=== PATIENT | female | born 1975 | race Caucasian/White ===

== ENCOUNTER 2016-10-04 09:22 | Emergency (ER) | payer OTHER ==
[2016-10-04 09:30] VITALS: TEMP 98.4; BMI 43.2
--- NOTE | 2016-10-04 09:47 | PDOC ---
History of Present Illness - General Chief Complaint: Palpitations Stated Complaint: CHEST PAIN, IRREGULAR HEARTBEAT Time Seen by Provider: 10/04/16 09:36 History Source: Patient Exam Limitations: No Limitations - History of Present Illness Initial Comments: 10/04/16 09:47 CHIEF COMPLAINT: Chest pain HISTORY OF PRESENT ILLNESS: This is a 41 year old female with a history of asthma (no hospitalizations), HLD, and gallstone pancreatitis s/p cholecystectomy who presents complaining of palpitations and chest pressure. She reports she has been having cold symptoms (fever up to 101, cough productive of yellow sputum, and bodyaches) for the past week, but just developed episodes of intermittent palpitations and chest pressure ("like someone sitting on my chest") starting on Tuesday. Vital signs on arrival are notable for BP 154/54. PCP is Dr. Josefa Rothman REVIEW OF SYSTEMS: GENERAL/CONSTITUTIONAL: Fevers/chills, malaise. No weakness. No weight change. HEAD, EYES, EARS, NOSE AND THROAT: No change in vision. No ear pain or discharge. No sore throat. CARDIOVASCULAR: Chest pressure, palpitations. RESPIRATORY: Cough productive of yellow sputum, shortness of breath. GASTROINTESTINAL: No nausea, vomiting, diarrhea or constipation. GENITOURINARY: No dysuria, frequency, or change in urination. MUSCULOSKELETAL: No joint or muscle swelling or pain. No neck or back pain. SKIN: No rash or easy bruising. NEUROLOGIC: Frontal headache. No vertigo, loss of consciousness, or loss of sensation. PSYCHIATRIC: No depression or anxiety. ENDOCRINE: No increased thirst. No abnormal weight change. HEMATOLOGIC/LYMPHATIC: No anemia, easy bleeding, or history of blood clots. ALLERGIC/IMMUNOLOGIC: No hives or skin allergy. No latex allergy. PHYSICAL EXAM: GENERAL: The patient is awake, alert, and fully oriented, in no acute distress. HEAD: Normal with no signs of trauma. ENT: Pupils equal, round and reactive to light, extraocular movements intact, sclera anicteric, conjunctiva clear. Neck supple. LUNGS: Clear to auscultation bilaterally. Normal excursion. No respiratory distress or use of accessory muscles. CV: RRR, S1/S2, no MRG. Cap refill < 2 sec. ABDOMEN: Soft, non-distended, non-tender. EXTREMITIES: Normal range of motion, no edema. NEUROLOGICAL: Normal speech, normal gait. CN II-XII grossly intact. PSYCH: Normal mood, normal affect. SKIN: Warm, dry, normal turgor, no rashes or lesions noted. Past History - Past Medical History Allergies/Adverse Reactions: Allergies Allergy/AdvReac Type Severity Reaction Status Date / Time No Known Allergies Allergy Verified 10/04/16 09:26 Home Medications: Ambulatory Orders Albuterol Sulfate Inhaler - [Ventolin HFA Inhaler -] 1 - 2 inh PO QID #1 inhaler 10/04/16 Azithromycin [Zithromax 250mg Tablets -] 250 mg PO UTDICT #6 tab 10/04/16 Promethazine/Phenyleph/Codeine [Phenergan VC+Codeine Syrup] 5 ml PO QID PRN # 118 ml MDD 20 mls 10/04/16 Asthma: Yes Cancer: No Cardiac Disorders: No Diabetes: No HTN: No Hypercholesterolemia: Yes (NOT ON MEDS) Seizures: No Thyroid Disease: No - Surgical History Abdominal Surgery: Yes (TUBAL LIGATION) Cholecystectomy: Yes - Reproductive History (#): 4 Para: 3 Therapeutic (s) & number: No Spontaneous : 0 - Psycho/Social/Smoking Cessation Hx Anxiety: No Suicidal Ideation: No Smoking History: Never smoked Have you smoked in the past 12 months: No Number of Cigarettes Smoked Daily: 0 Information on smoking cessation initiated: No Hx Alcohol Use: No Drug/Substance Use Hx: No Substance Use Type: None Hx Substance Use Treatment: No *Physical Exam - Vital Signs Last Vital Signs Temp Pulse Resp BP Pulse Ox 98.4 F 74 18 154/54 100 10/04/16 09:26 10/04/16 09:26 10/04/16 09:26 10/04/16 09:26 10/04/16 09:26 Heart Score/ECG Review - ECG Intrepretation Comment:: 10/04/16 09:56 NSR at 84bpm, no ST or T wave changes ED Treatment Course - LABORATORY CBC & Chemistry Diagram: 10/04/16 10:09 10/04/16 10:09 - RADIOLOGY Radiology Studies Ordered: Category Date Time Status CHEST PA & LAT [RAD] Stat Radiology 10/04/16 09:46 Ordered Medical Decision Making - Medical Decision Making 10/04/16 10:46 A/P: 41 year old female with chest pressure/palpitations in the context of cold/ flu-like symptoms. 1. EKG 2. CXR 3. Influenza swab 4. Cardiac labs + d-dimer 5. Re-assess 10/04/16 10:48 Flu neg. WBC within normal limits at 9.4. 10/04/16 11:41 Labs including cardiac profile and d-dimer unremarkable. CXR shows no active disease. 10/04/16 15:56 Repeat troponin <0.02. Will dc with PCP followup and return precautions. *DC/Admit/Observation/Transfer Diagnosis at time of Disposition: Atypical chest pain, Palpitations - Discharge Dispostion Disposition: HOME Condition at time of disposition: Stable Admit: No - Prescriptions Prescriptions: Promethazine/Phenyleph/Codeine [Phenergan VC+Codeine Syrup] 5 ml PO QID PRN # 118 ml MDD 20 mls PRN Reason: Cough Albuterol Sulfate Inhaler - [Ventolin HFA Inhaler -] 1 - 2 inh PO QID #1 inhaler Azithromycin [Zithromax 250mg Tablets -] 250 mg PO UTDICT #6 tab - Referrals Referrals: Josefa Rothman [Primary Care Provider] - 3 days - Patient Instructions Printed Discharge Instructions: DI for Atypical Chest Pain, DI for Acute Bronchitis Additional Instructions: You were seen today for chest pain, cough, palpitations, headache, and body pain. Your chest xray is normal and does not show any sign of pneumonia. Your EKG is normal. Your blood work including a test to screen for blood clots in the legs or lungs and two sets of tests for the heart is all normal. Your flu test is negative. Take azithromycin as prescribed for bronchitis. Use an albuterol inhaler and take cough syrup with codeine as prescribed when you are not driving or working. Follow up with your primary care doctor tomorrow and return here for difficulty breathing, worsening chest pain, or any other concerning symptoms. - Post Discharge Activity Work/School Note: Back to Work
[2016-10-04 10:32] LABS: BASOPHIL 0.5 % (0-2.0); EOSINOPHIL 3.8 % (0-4.5); MCH 28.7 pg (25.7-33.7); MCHC 34.5 g/dl (32.0-36.0); MEAN CELL VOLUME 83.2 fl (80-96); MEAN PLT VOLUME 8.5 fl (7.5-11.1); NEUTROPHILS 65.8 % (42.8-82.8); PLATELET COUNT 230 K/MM3 (134-434); RDW 13.5 % (11.6-15.6); WHITE BLOOD COUNT 9.4 K/mm3 (4.0-10.0)
[2016-10-04 10:44] LABS: INR 1.08 (0.82-1.09); PROTHROMBIN TIME (PATIENT) 11.9 SEC (9.98-11.88)
[2016-10-04 10:51] LABS: ALBUMIN 3.8 g/dl (3.4-5.0); ALK PHOS 60 U/L (45-117); ANION GAP 8 (8-16); BILIRUBIN,TOTAL 0.4 mg/dL (0.2-1.0); CALCIUM 8.5 mg/dL (8.5-10.1); CO2 22 mmol/L (21-32); CREATININE 0.9 mg/dL (0.55-1.02); GLUCOSE,RANDOM 94 mg/dL (74-106); SGOT/AST 11 U/L (15-37); SGPT/ALT 23 U/L (12-78); TOT PROT 7.3 g/dl (6.4-8.2); TROPONIN I < 0.02 ng/ml (0.00-0.05)
[2016-10-04] MEDS ORDERED: KETOROLAC TROMETHAMINE 30 MG/1 ML VIAL IVPUSH ONE (11:00)
[2016-10-04] MEDS ORDERED: KETOROLAC TROMETHAMINE 30 MG/1 ML VIAL ONE (11:11)
[2016-10-04] MEDS ORDERED: SODIUM CHLORIDE 1,000 ML IV STA (12:31)
[2016-10-04] MEDS ORDERED: ACETAMINOPHEN 500 MG TABLET (FP) PO ONE (12:32)
[2016-10-04] MEDS ORDERED: ACETAMINOPHEN 325 MG TABLET (FP) ONE (12:40)
[2016-10-04 15:12] LABS: TROPONIN I < 0.02 ng/ml (0.00-0.05)
[2016-10-04] MEDS ORDERED: OXYCODONE/APAP 5/325MG COMBO TABLET PO ONE (15:53)
[2016-10-04] MEDS ORDERED: ALBUTEROL SO4 2.5/IPRATROPIUM 0.5 INH SOL 3 ML VIAL.NEB. NEB ONE ×2 (15:54→16:10)
[2016-10-04] MEDS ORDERED: OXYCODONE/APAP 5/325MG COMBO TABLET ONE (16:10)
[2016-10-04 17:00] VITALS: BP 140/68; PULSE 75
--- NOTE | 2016-10-05 16:36 | EKG ---
Test Reason : Blood Pressure : / mmHG Vent. Rate : 084 BPM Atrial Rate : 084 BPM P-R Int : 156 ms QRS Dur : 084 ms QT Int : 358 ms P-R-T Axes : 027 008 013 degrees QTc Int : 423 ms NORMAL SINUS RHYTHM NORMAL ECG WHEN COMPARED WITH ECG OF 26-FEB-2015 17:01, T WAVE VARIATION Confirmed by FLOYD MOODY MD ([id number]) on 10/05/2016 4:35:51 PM Referred By: Confirmed By:FLOYD MOODY MD
== END 2016-10-04 17:02 | disposition home or self-care (01) ==
LOC: JER 09:22
PROC: 3E0F7GC Introduction of Other Therapeutic Substance into Respiratory Tract, Via Natural or Artificial Opening (ICD-10-PCS; principal; 2016-10-04)
PROC: 3E0337Z Introduction of Electrolytic and Water Balance Substance into Peripheral Vein, Percutaneous Approach (ICD-10-PCS; 2016-10-04)
PROC: 3E0333Z Introduction of Anti-inflammatory into Peripheral Vein, Percutaneous Approach (ICD-10-PCS; 2016-10-04)
DX: R07.89 Other chest pain (principal); R00.2 Palpitations; J20.9 Acute bronchitis, unspecified; R51 Headache
CPT/HCPCS: 36415; 71020-TC; 80053; 82550; 84484; 84703; 85025; 85379; 85610; 87804; 93005; 93010; 94640; 96361; 96374; 99285-25

== ENCOUNTER 2016-11-17 19:20 | Emergency (ER) | payer OTHER ==
[2016-11-17 19:35] VITALS: BP 136/76; PULSE 92; TEMP 103; BMI 38.0
--- NOTE | 2016-11-17 19:35 | PDOC ---
Rapid Medical Evaluation Chief Complaint: Lightheaded Time Seen by Provider: 11/17/16 19:29 Medical Evaluation: Allergies Allergy/AdvReac Type Severity Reaction Status Date / Time No Known Allergies Allergy Verified 11/17/16 19:31 11/17/16 19:34 41 yo F c/o rodriguez, sore throat, body ache, 102.5 tmax since yesterday. Pt took tylenol 1.5gm Influenza rapid ordered and sent
[2016-11-17] MEDS ORDERED: AMOX TR/POT CLAV 875MG/125MG TABLETS (FP) PO ONE (21:08)
[2016-11-17] MEDS ORDERED: IBUPROFEN 600 MG TABLET (FP) PO ONE ×2 (21:08→21:26)
--- NOTE | 2016-11-17 21:22 | PDOC ---
History of Present Illness - General Chief Complaint: Lightheaded Stated Complaint: LIGHTHEADED Time Seen by Provider: 11/17/16 19:29 History Source: Patient Exam Limitations: No Limitations - History of Present Illness Initial Comments: 11/17/16 21:20 Chief complaint: Throat pain Patient 41-year-old female with a history of asthma who states that she has a sore throat for 2 days, minimal cough, states that she has had body aches and lightheaded. Patient's fever was 103 in triage, had taken Tylenol about an hour before that. No nausea or vomiting. No headache. Patient does not appear toxic. GENERAL/CONSTITUTIONAL: +fever, weakness. dizziness HEAD, EYES, EARS, NOSE AND THROAT: No change in vision. No ear pain or discharge. +sore throat. CARDIOVASCULAR: No chest pain RESPIRATORY: No shortness of breath or cough GASTROINTESTINAL: No pain, nausea, vomiting, diarrhea or constipation GENITOURINARY: No dysuria MUSCULOSKELETAL: No neck or back pain SKIN: No rash NEUROLOGIC: No headache, vertigo, loss of consciousness, or loss of sensation. GENERAL: The patient is awake, alert, and fully oriented, in no acute distress. HEAD: Normal with no signs of trauma. EYES: Pupils equal, round and reactive to light, sclera anicteric, conjunctiva clear. ENT: pharynx: +erythema, + right sided exudate, uvula midline. No signs of a peritonsillar abscess, speech normal NECK: supple CHEST: clear, nontender, rr ABD: soft, nontender EXTREMITIES: Normal range of motion, no edema. NEUROLOGICAL: Normal speech, normal gait. SKIN: Warm, Dry Past History - Past Medical History Allergies/Adverse Reactions: Allergies Allergy/AdvReac Type Severity Reaction Status Date / Time No Known Allergies Allergy Verified 11/17/16 19:31 Home Medications: Ambulatory Orders Albuterol Sulfate Inhaler - [Ventolin Hfa Inhaler -] 1 - 2 inh PO QID 11/17/16 Amox-Tr/K Cl [Augmentin - 875Mg Tablet] 1 tab PO BID #20 tablet 11/17/16 Asthma: Yes Cancer: No Cardiac Disorders: No Diabetes: No HTN: No Hypercholesterolemia: Yes (NOT ON MEDS) Seizures: No Thyroid Disease: No - Surgical History Abdominal Surgery: Yes (TUBAL LIGATION) Cholecystectomy: Yes - Reproductive History (#): 4 Para: 3 Therapeutic (s) & number: No Spontaneous : 0 - Psycho/Social/Smoking Cessation Hx Anxiety: No Suicidal Ideation: No Smoking History: Never smoked Have you smoked in the past 12 months: No Number of Cigarettes Smoked Daily: 0 Hx Alcohol Use: No Drug/Substance Use Hx: No Substance Use Type: None Hx Substance Use Treatment: No *Physical Exam - Vital Signs Last Vital Signs Temp Pulse Resp BP Pulse Ox 103 F H 92 H 18 136/76 99 11/17/16 19:32 11/17/16 19:32 11/17/16 19:32 11/17/16 19:32 11/17/16 19:32 Medical Decision Making - Medical Decision Making 11/17/16 21:22 Patient with throat pain, swelling and exudate on the right side of the throat, uvula is midline, no signs of peritonsillar abscess, patient can speak easily although she feels body aches and throat pain. Influenza swab was sent from triage, we'll send throat culture, we'll treat with ibuprofen and Augmentin 11/17/16 23:08 Patient feels better, we'll discharge home on Augmentin 11/17/16 23:53 Discharge temperature was 98.1 *DC/Admit/Observation/Transfer Diagnosis at time of Disposition: Strep pharyngitis - Discharge Dispostion Admit: No - Prescriptions Prescriptions: Amox-Tr/K Cl [Augmentin - 875Mg Tablet] 1 tab PO BID #20 tablet - Referrals Referrals: Josefa Rothman [Primary Care Provider] - Eduardo Kamara MD [Staff Physician] - - Patient Instructions Printed Discharge Instructions: Strep Throat Additional Instructions: You should drink plenty of fluids, try to drink at least 2-3 L of fluid a day, he should not just drank water if you're not eating, you should drink Gatorade or something with some sugar and it. Return to the ER if difficulty breathing, drooling, unable to swallow or getting sicker Take the Augmentin one tablet every 12 hours for 10 days, take it for the whole 10 days even if he started feeling better which she should in the first day or 2 For pain take Tylenol 650 mg every 4 hours and Motrin 600 mg every 6 hours. If any other concerns, you can call the ENT and follow-up with them this week
[2016-11-17] MEDS ORDERED: AMOX TR/POT CLAV 875MG/125MG TABLETS (FP) ONE (21:25)
[2016-11-17] MEDS ORDERED: SODIUM CHLORIDE 1,000 ML IV STA (21:42)
== END 2016-11-17 23:36 | disposition home or self-care (01) ==
LOC: JER 19:20
PROC: 3E0337Z Introduction of Electrolytic and Water Balance Substance into Peripheral Vein, Percutaneous Approach (ICD-10-PCS; principal; 2016-11-17)
DX: J02.0 Streptococcal pharyngitis (principal); B95.0 Streptococcus, group A, as the cause of diseases classified elsewhere; J45.909 Unspecified asthma, uncomplicated
CPT/HCPCS: 87070; 87430; 99282-25

== ENCOUNTER 2016-12-04 16:28 | Emergency (ER) | payer OTHER ==
[2016-12-04 16:33] VITALS: BMI 44.9
--- NOTE | 2016-12-04 16:38 | PDOC ---
History of Present Illness - General History Source: Patient, Old Records Exam Limitations: No Limitations - History of Present Illness Initial Comments: 12/04/16 17:12 The patient is a 41 year old female, with a significant past medical history of asthma, hyperlipidemia and cholelithiasis/pancreatitis s/p cholecystectomy, who presents to the emergency department with constant nonradiating diffuse lower quadrant abdominal pain since earlier this morning. The patient rates her pain as a 10/10 in severity and reports that the pain is worse in the LLQ. The patient reports that she was most recently seen in this ED on 11/17/2016 with a sore throat, was diagnosed with strep pharyngitis and was discharged home on Augmentin. The patient reports that she completed the course of antibiotics but reports a persistent sore throat. The patient does report chills but denies fever or cough. The patient denies shortness of breath or chest pain. The patient denies nausea, vomiting, diarrhea, melena/bpr or any dysuria. LMP: 2016 (but patient reports irregular menses are normal for her). Allergies: None reported. Past Surgical History: x 4, Tubal Ligation, Cholecystectomy. Social History: Non smoker. Denies alcohol or drug use. PCP: Dr. Josefa Rothman <Madiha Alas - Last Filed: 12/04/16 18:25> <Kamaljit Perez - Last Filed: 12/04/16 19:00> - General Chief Complaint: Pain Stated Complaint: ABDOMINAL PAIN Time Seen by Provider: 12/04/16 16:37 Past History <Madiha Alas - Last Filed: 12/04/16 18:25> - Past Medical History Asthma: Yes Cancer: No Cardiac Disorders: No Diabetes: No HTN: No Hypercholesterolemia: Yes (NOT ON MEDS) Seizures: No Thyroid Disease: No - Surgical History Abdominal Surgery: Yes (TUBAL LIGATION) Cholecystectomy: Yes - Reproductive History (#): 4 Para: 3 Therapeutic (s) & number: No Spontaneous : 0 - Psycho/Social/Smoking Cessation Hx Anxiety: No Suicidal Ideation: No Smoking History: Never smoked Have you smoked in the past 12 months: No Number of Cigarettes Smoked Daily: 0 Information on smoking cessation initiated: No Hx Alcohol Use: No Drug/Substance Use Hx: No Substance Use Type: None Hx Substance Use Treatment: No <AnaKamaljit - Last Filed: 12/04/16 19:00> - Past Medical History Allergies/Adverse Reactions: Allergies Allergy/AdvReac Type Severity Reaction Status Date / Time No Known Allergies Allergy Verified 12/04/16 16:33 Home Medications: Ambulatory Orders Albuterol Sulfate Inhaler - [Ventolin Hfa Inhaler -] 1 - 2 inh PO QID 11/17/16 Amox-Tr/K Cl [Augmentin - 875Mg Tablet] 1 tab PO BID #20 tablet 11/17/16 Tramadol HCl 50 mg PO TID #14 tablet MDD 3 12/04/16 Review of Systems - Review of Systems Able to Perform ROS?: Yes Comments:: 12/04/16 17:05 CONSTITUTIONAL: +Chills. No fever, no fatigue EYES: No visual changes ENT: +Sore throat. No ear pain CARDIOVASCULAR: No chest pain, no palpitations RESPIRATORY: No cough, no SOB GI: +Abdominal pain. No nausea, no vomiting, no constipation, no diarrhea GENITOURINARY: No dysuria, no frequency, no hematuria MUSKULOSKELETAL: No back pain, no joint pain, no myalgias SKIN: No rash NEURO: No headache <Madiha Alas - Last Filed: 12/04/16 18:25> *Physical Exam - Vital Signs Last Vital Signs Temp Pulse Resp BP Pulse Ox 97.6 F 80 18 121/64 99 12/04/16 16:31 12/04/16 16:31 12/04/16 16:31 12/04/16 16:31 12/04/16 16:31 - Physical Exam Comments: 12/04/16 17:33 CONSTITUTIONAL: Morbidly obese. Well-appearing, well-nourished but in mild to moderate distress. HEAD: Normocephalic; atraumatic. EYES: PERRL; EOM intact. ENMT: External appears normal; normal oropharynx. NECK: Supple; non-tender; mildly enlarged right anterior cervical lymph node. CARD: Normal S1, S2; no murmurs, rubs, or gallops. RESP: Normal chest excursion with respiration; breath sounds clear and equal bilaterally; no wheezes, rhonchi, or rales. ABD: Bilateral lower quadrant tenderness, worse on the left. No guarding, no rebound. Soft, non-distended; no palpable organomegaly, no palpable hernias. MUSCULOSKELETAL: No CVA tenderness, bilaterally. EXT: Normal ROM in all four extremities; non-tender to palpation; distal pulses intact. SKIN: Warm, dry, no rash. NEURO: No focal neurological deficiencies. <Madiha Alas - Last Filed: 12/04/16 18:25> - Vital Signs Last Vital Signs Temp Pulse Resp BP Pulse Ox 97.6 F 80 18 121/64 99 12/04/16 16:31 12/04/16 16:31 12/04/16 16:31 12/04/16 16:31 12/04/16 16:31 <Kamaljit Perez - Last Filed: 12/04/16 19:00> ED Treatment Course - LABORATORY CBC & Chemistry Diagram: 12/04/16 16:20 12/04/16 16:20 <Madiha Alas - Last Filed: 12/04/16 18:25> - LABORATORY CBC & Chemistry Diagram: 12/04/16 16:20 12/04/16 16:20 <Kamaljit Perez - Last Filed: 12/04/16 19:00> Medical Decision Making - Medical Decision Making 12/04/16 18:19 EXAM: ULTRASOUND PELVIS, COMPLETE AND DUPLEX SCAN PELVIS, COMPLETE Reviewed By: Dr. Belen Hauser IMPRESSION: No ovarian torsion. Arterial and venous waveforms on the left and arterial and venous waveforms on the right. No free fluid. Normal uterus, endometrial stripe complex 15mm thick. Unremarkable visualized portion of the bladder. <Madiha Alas - Last Filed: 12/04/16 18:25> - Medical Decision Making 12/04/16 17:47 Patient is morbidly obese 41-year-old female with symptoms and signs of PCO S who presents with atraumatic bilateral lower abdominal pain, more pronounced on the left. I suspect patient's symptoms are related to ovarian cysts; will hydrate, we'll administer NSAIDs, will obtain transvaginal ultrasound to rule out torsion. Will reassess. 12/04/16 18:21 Patient reassessed. Patient continues to complain of bilateral lower abdominal pain. CBC/CMP within normal limit. Minimal hyperglycemia is noted. Transvaginal and pelvic ultrasound reveal a thickened endometrial stripe 15 mm, no evidence of ovarian torsion bilaterally, no evidence of free fluid. On reassessment, patient continues to have bilateral lower pelvic and suprapubic tenderness to palpation without guarding or rebound. We'll administer tramadol. Awaiting urinalysis. I do not suspect acute appendicitis or diverticulitis or colitis at this time. Will reassess. We'll administer by mouth challenge. If patient tolerates by mouth and pain is improved, we'll discharge. 12/04/16 18:56 Patient reassessed. Patient reports significant improvement in level of her pain. On reexamination, there is minimal lower abdominal discomfort only without guarding or rebound. Urinalysis reveals hematuria only. I suspect impending menses. Will discharge with [facility] follow-up. <Kamaljit Perez - Last Filed: 12/04/16 19:00> *DC/Admit/Observation/Transfer - Attestations Scribe Attestion: 12/04/16 16:55 Documentation prepared by Madiha Alas, acting as chief medical technologist for Kamaljit Perez MD. <Madiha Alas - Last Filed: 12/04/16 18:25> - Attestations Physician Attestion: 12/04/16 17:47 The documentation was prepared by the scribe under my direct supervision. I have reviewed the documentation which correctly represents the findings, medical decision-making and critical action taken by me. <Kamaljit Perez - Last Filed: 12/04/16 19:00> Diagnosis at time of Disposition: Abdominal pain Qualifiers: Abdominal location: lower abdomen, unspecified Qualified Code(s): R10.30 - Lower abdominal pain, unspecified - Discharge Dispostion Disposition: HOME Condition at time of disposition: Stable - Referrals Referrals: occupational therapy asst, one week [Other] - Patient Instructions Printed Discharge Instructions: DI for Abdominal Pain-Adult
[2016-12-04] MEDS ORDERED: SODIUM CHLORIDE 1,000 ML IV STA (16:47)
[2016-12-04] MEDS ORDERED: KETOROLAC TROMETHAMINE 30 MG/1 ML VIAL IVPUSH ONE (16:52)
[2016-12-04] MEDS ORDERED: KETOROLAC TROMETHAMINE 30 MG/1 ML VIAL ONE (16:53)
[2016-12-04 17:29] LABS: BASOPHIL 0.6 % (0-2.0); EOSINOPHIL 2.9 % (0-4.5); MCH 28.7 pg (25.7-33.7); MCHC 34.4 g/dl (32.0-36.0); MEAN CELL VOLUME 83.5 fl (80-96); NEUTROPHILS 61.8 % (42.8-82.8); PLATELET COUNT 237 K/MM3 (134-434); RDW 14.2 % (11.6-15.6); WHITE BLOOD COUNT 9.6 K/mm3 (4.0-10.0)
[2016-12-04 17:40] LABS: INR 1.01 (0.82-1.09); PROTHROMBIN TIME (PATIENT) 11.1 SEC (9.98-11.88)
[2016-12-04 17:51] LABS: ALBUMIN 3.5 g/dl (3.4-5.0); ALK PHOS 53 U/L (45-117); ANION GAP 11 (8-16); BILIRUBIN,TOTAL 0.3 mg/dL (0.2-1.0); CALCIUM 8.7 mg/dL (8.5-10.1); CO2 24 mmol/L (21-32); GLUCOSE,RANDOM 143 mg/dL (74-106); SGOT/AST 8 U/L (15-37); SGPT/ALT 19 U/L (12-78); TOT PROT 6.8 g/dl (6.4-8.2)
[2016-12-04] MEDS ORDERED: traMADol HCL 50 MG TABLET ONE (18:21)
[2016-12-04] MEDS ORDERED: traMADol HCL 50 MG TABLET PO ONE (18:21)
[2016-12-04 18:42] LABS: URINE APPEARANCE SLCLOUDY; URINE BILIRUBIN NEGATIVE (NEGATIVE); URINE COLOR RED; URINE GLUCOSE (UA) NEGATIVE (NEGATIVE); URINE KETONE NEGATIVE (NEGATIVE); URINE LEUK ESTERASE NEGATIVE (NEGATIVE); URINE NITRITE NEGATIVE (NEGATIVE); URINE UROBILINOGEN NEGATIVE E.U./dl (0.2-1.0)
[2016-12-04 18:43] LABS: URINE BLOOD 3+ (NEGATIVE); URINE PROTEIN 1+ (NEGATIVE)
[2016-12-04 18:58] LABS: URINE MUCUS RARE; URINE RBC 2556 /hpf (0-3)
[2016-12-04 19:13] VITALS: BP 140/80; PULSE 87; TEMP 98.2
== END 2016-12-04 19:13 | disposition home or self-care (01) ==
LOC: JER 16:28
PROC: 3E0337Z Introduction of Electrolytic and Water Balance Substance into Peripheral Vein, Percutaneous Approach (ICD-10-PCS; principal; 2016-12-04)
PROC: 3E0333Z Introduction of Anti-inflammatory into Peripheral Vein, Percutaneous Approach (ICD-10-PCS; 2016-12-04)
DX: R10.30 Lower abdominal pain, unspecified (principal); E78.00 Pure hypercholesterolemia, unspecified; J45.909 Unspecified asthma, uncomplicated
CPT/HCPCS: 36415; 76856-TC; 80053; 81003; 81015; 84703; 85025; 85610; 87086; 96361; 96374; 99284-25

== ENCOUNTER 2016-12-18 18:54 | Emergency (ER) | payer OTHER ==
[2016-12-18 19:08] VITALS: BP 135/75; PULSE 86; TEMP 98.1; BMI 43.2
--- NOTE | 2016-12-18 19:54 | PDOC ---
History of Present Illness - General Chief Complaint: Respiratory Stated Complaint: COLD SYMP Time Seen by Provider: 12/18/16 19:14 History Source: Patient Exam Limitations: No Limitations - History of Present Illness Initial Comments: 12/18/16 19:51 41 yr female with body aches cough for 3 days. no fever or chills. no abd pain or urinary symptoms. Severity: reports: mild Past History - Past Medical History Allergies/Adverse Reactions: Allergies Allergy/AdvReac Type Severity Reaction Status Date / Time No Known Allergies Allergy Verified 12/18/16 19:08 Home Medications: Ambulatory Orders Benzonatate [Tessalon Pearls -] 200 mg PO TID PRN #42 cap 12/18/16 Asthma: Yes Cancer: No Cardiac Disorders: No Diabetes: No HTN: No Hypercholesterolemia: Yes (NOT ON MEDS) Seizures: No Thyroid Disease: No Other medical history: obesity - Surgical History Abdominal Surgery: Yes (TUBAL LIGATION) Cholecystectomy: Yes - Reproductive History (#): 4 Para: 3 Therapeutic (s) & number: No Spontaneous : 0 - Psycho/Social/Smoking Cessation Hx Anxiety: No Suicidal Ideation: No Smoking History: Never smoked Have you smoked in the past 12 months: No Number of Cigarettes Smoked Daily: 0 Hx Alcohol Use: No Drug/Substance Use Hx: No Substance Use Type: None Hx Substance Use Treatment: No Respiratory Specific PMHX - Complaint Specific PMHX Angina: No Bronchitis: No Pneumonia: No Pulmonary Embolus: No TB (Tuberculosis): No Review of Systems - Review of Systems Able to Perform ROS?: Yes Is the patient limited Albanian proficient: No Constitutional: No: Symptoms Reported HEENTM: No: Symptoms Reported Respiratory: Yes: Cough Cardiac (ROS): No: Symptoms Reported ABD/GI: No: Symptoms Reported : No: Symptoms Reported Musculoskeletal: No: Symptoms Reported Integumentary: No: Symptoms Reported Neurological: No: Symptoms reported *Physical Exam - Vital Signs Last Vital Signs Temp Pulse Resp BP Pulse Ox 98.1 F 86 18 135/75 99 12/18/16 19:06 12/18/16 19:06 12/18/16 19:06 12/18/16 19:06 12/18/16 19:06 - Physical Exam General Appearance: Yes: Nourished, Appropriately Dressed HEENT: positive: EOMI, KIKA, TMs Normal, Pharynx Normal Neck: positive: Supple. negative: Tender Respiratory/Chest: positive: Lungs Clear, Normal Breath Sounds. negative: Chest Tender, Crackles, Rales, Rhonchi, Stridor, Wheezing Cardiovascular: positive: Regular Rhythm, Regular Rate Gastrointestinal/Abdominal: positive: Normal Bowel Sounds, Soft. negative: Tender Musculoskeletal: positive: Normal Inspection Extremity: positive: Normal Capillary Refill, Normal Inspection, Normal Range of Motion Integumentary: positive: Normal Color, Dry, Warm Neurologic: positive: Fully Oriented, Alert, Normal Mood/Affect, Normal Response , Motor Strength 01/21 Medical Decision Making - Medical Decision Making 12/18/16 19:54 cc: body aches feverish will check flu no urianry complaints *DC/Admit/Observation/Transfer Diagnosis at time of Disposition: Viral upper respiratory illness - Discharge Dispostion Disposition: HOME Condition at time of disposition: Good - Prescriptions Prescriptions: Benzonatate [Tessalon Pearls -] 200 mg PO TID PRN #42 cap PRN Reason: Cough - Patient Instructions Additional Instructions: drink pleanty of fluids take the tessalon as directed for coughing take tylenol 650mg every 4-6hrs for headache or pain as needed you can also take motrin (over the counter ibuprofen, advil, motrin) follow with your doctor next week if any worsening symptoms or return if any worsening symptoms
[2016-12-18] MEDS ORDERED: ACETAMINOPHEN 325 MG TABLET (FP) PO ONE (20:12)
[2016-12-18] MEDS ORDERED: ACETAMINOPHEN 325 MG TABLET (FP) ONE (20:18)
== END 2016-12-18 20:22 | disposition home or self-care (01) ==
LOC: JERFT 18:54
DX: J06.9 Acute upper respiratory infection, unspecified (principal); B97.89 Other viral agents as the cause of diseases classified elsewhere; J45.909 Unspecified asthma, uncomplicated; E78.00 Pure hypercholesterolemia, unspecified
CPT/HCPCS: 87804; 99281-25

== ENCOUNTER 2017-02-13 22:04 | Emergency (ER) | payer OTHER ==
[2017-02-13 22:12] VITALS: TEMP 98.1; BMI 44.9
--- NOTE | 2017-02-13 22:25 | PDOC ---
History of Present Illness <Haydee Mohan Wanda - Last Filed: 02/13/17 22:25> - General History Source: Patient Exam Limitations: No Limitations <Tita Hines - Last Filed: 02/13/17 23:07> <Kenia Swann - Last Filed: 02/17/17 22:16> - General Chief Complaint: Chest Pain Stated Complaint: CHEST PAIN/LEFT ARM NUMBNESS Time Seen by Provider: 02/13/17 22:15 - History of Present Illness Initial Comments: 02/13/17 23:07 The patient is a 41 year old female, with a significant past medical history of asthma, hyperlipidemia and cholelithiasis/pancreatitis s/p cholecystectomy, who presents to the emergency department with two days of left-sided chest pain today. The patient states that the pain is intermittent, burning in sensation, and non-radiating. Pt denies experiencing any chest pain on exam but does report having associated numbness in her left hand. 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 The patient denies any shortness of breath or any other symptoms. Allergies: None reported. Past Surgical History: x 4, Tubal Ligation, Cholecystectomy. Social History: Non smoker. Denies alcohol or drug use. PCP: Dr. Josefa Rothman (Tita Hines) Past History - Past Medical History Asthma: Yes Cancer: No Cardiac Disorders: No Diabetes: No HTN: No Hypercholesterolemia: Yes (NOT ON MEDS) Seizures: No Thyroid Disease: No - Surgical History Abdominal Surgery: Yes (TUBAL LIGATION) Cholecystectomy: Yes - Reproductive History (#): 4 Para: 3 Therapeutic (s) & number: No Spontaneous : 0 - Psycho/Social/Smoking Cessation Hx Anxiety: No Suicidal Ideation: No Smoking History: Never smoked Have you smoked in the past 12 months: No Number of Cigarettes Smoked Daily: 0 Information on smoking cessation initiated: No Hx Alcohol Use: No Drug/Substance Use Hx: No Substance Use Type: None Hx Substance Use Treatment: No <MarquesMikhailscar Muñoz - Last Filed: 02/13/17 22:25> <Tita Hines - Last Filed: 02/13/17 23:07> <Kenia Swann - Last Filed: 02/17/17 22:16> - Past Medical History Allergies/Adverse Reactions: Allergies Allergy/AdvReac Type Severity Reaction Status Date / Time No Known Allergies Allergy Verified 02/13/17 22:16 Home Medications: Ambulatory Orders NK [No Known Home Medication] 02/13/17 Cardiac Specific PMH - Complaint Specific PMHX Angina: No Pulmonary Embolus: No <Haydee Mohan - Last Filed: 02/13/17 22:25> Review of Systems <Haydee Mohan - Last Filed: 02/13/17 22:25> - Review of Systems Able to Perform ROS?: Yes <Tita Hines - Last Filed: 02/13/17 23:07> <Kenia Swann - Last Filed: 02/17/17 22:16> - Review of Systems Comments:: 02/13/17 23:07 CONSTITUTIONAL: Absent: fever, chills, diaphoresis, generalized weakness, malaise, loss of appetite HEENT: Absent: rhinorrhea, nasal congestion, throat pain, throat swelling, difficulty swallowing, mouth swelling, ear pain, eye pain, visual Changes CARDIOVASCULAR: Absent: chest pain, syncope, palpitations, irregular heart rate, lightheadedness , peripheral edema RESPIRATORY: Absent: cough, shortness of breath, dyspnea with exertion, orthopnea, wheezing, stridor, hemoptysis GASTROINTESTINAL: Absent: abdominal pain, abdominal distension, nausea, vomiting, diarrhea, constipation, melena, hematochezia GENITOURINARY: Absent: dysuria, frequency, urgency, hesitancy, hematuria, flank pain, genital pain MUSCULOSKELETAL: Present: back pain Absent: arthralgia, joint swelling EXTREMITIES: Present: left arm numbness SKIN: Absent: rash, itching, pallor HEMATOLOGIC/IMMUNOLOGIC: Absent: easy bleeding, easy bruising, lymphadenopathy, frequent infections ENDOCRINE: Absent: unexplained weight gain, unexplained weight loss, heat intolerance, cold intolerance NEUROLOGIC: Absent: headache, focal weakness or paresthesias, dizziness, unsteady gait, seizure, mental status changes, bladder or bowel incontinence PSYCHIATRIC: Absent: anxiety, depression, suicidal or homicidal ideation, hallucinations. (Tita Hines) *Physical Exam <Haydee Mohan - Last Filed: 02/13/17 22:25> <Tita Hines - Last Filed: 02/13/17 23:07> <Kenia Swann - Last Filed: 02/17/17 22:16> - Vital Signs Last Vital Signs Temp Pulse Resp BP Pulse Ox 98.1 F 62 14 97/54 98 02/13/17 22:07 02/14/17 04:43 02/14/17 04:43 02/14/17 04:43 02/14/17 04:43 - Physical Exam Comments: 02/13/17 23:09 Well developed, well nourished. Awake and alert. No acute distress. HEENT: Normocephalic, atraumatic. PERRLA, EOMI. No conjunctival pallor. Sclera are non- icteric. Moist mucous membranes. Oropharynx is clear. NECK: Supple. Full ROM. No JVD. Carotid pulses 2+ and symmetric, without bruits. No thyromegaly. No lymphadenopathy. CARDIOVASCULAR: Regular rate and rhythm. No murmurs, rubs, or gallops. Distal pulses are 2+ and symmetric. PULMONARY: No evidence of respiratory distress. Lungs clear to auscultation bilaterally. No wheezing, rales or rhonchi. ABDOMINAL: Soft. Protuberant belly. Non-tender. Non-distended. No rebound or guarding. No organomegaly. Normoactive bowel sounds. MUSCULOSKELETAL Normal range of motion at all joints. No bony deformities or tenderness. No CVA tenderness. EXTREMITIES: No cyanosis. No clubbing. No edema. No calf tenderness. SKIN: Warm and dry. Normal capillary refill. No rashes. No jaundice. NEUROLOGICAL: Alert, awake, appropriate. No gross focal neuro deficits. PSYCHIATRIC: Cooperative. Good eye contact. Appropriate mood and affect. (Tita Hines) ED Treatment Course - LABORATORY CBC & Chemistry Diagram: 02/13/17 22:33 <Tita Hines - Last Filed: 02/13/17 23:07> - LABORATORY CBC & Chemistry Diagram: 02/13/17 22:33 02/13/17 22:33 <Kenia Swann - Last Filed: 02/17/17 22:16> - ADDITIONAL ORDERS Additional order review: 02/13/17 22:33 RBC 4.49 MCV 83.9 MCHC 33.7 RDW 14.0 MPV 8.5 Neutrophils % 44.5 D Lymphocytes % 42.7 H D Monocytes % 7.8 Eosinophils % 4.5 Basophils % 0.5 - Medications Given in the ED: ED Medications Discontinued Medications Generic Name Dose Route Start Last Admin Trade Name Gloria PRN Reason Stop Dose Admin Aspirin 162 mg 02/13/17 22:51 02/13/17 22:56 Asa - PO 02/13/17 22:52 162 mg ONCE ONE Administration Medical Decision Making <Haydee Mohan - Last Filed: 02/13/17 22:25> <Tita Hines - Last Filed: 02/13/17 23:07> <Kenia Swann - Last Filed: 02/17/17 22:16> - Medical Decision Making 02/17/17 22:15 Labs, exam and workup normal. Pt will be discharged home. Diagnosis: atypical chest pain. (Kenia Swann) *DC/Admit/Observation/Transfer <Haydee Mohan - Last Filed: 02/13/17 22:25> <Tita Hines - Last Filed: 02/13/17 23:07> - Discharge Dispostion Admit: No <Kenia Swann - Last Filed: 02/17/17 22:16> Diagnosis at time of Disposition: Atypical chest pain - Discharge Dispostion Disposition: HOME Condition at time of disposition: Stable - Referrals Referrals: Josefa Rothman [Primary Care Provider] - - Patient Instructions Printed Discharge Instructions: DI for Atypical Chest Pain - Attestations Scribe Attestion: 02/13/17 23:12 Documentation prepared by Tita Hines, acting as medical front desk specialist for Haydee Mohan MD. (Tita Hines)
[2017-02-13 22:40] LABS: BASOPHIL 0.5 % (0-2.0); EOSINOPHIL 4.5 % (0-4.5); MCH 28.3 pg (25.7-33.7); MCHC 33.7 g/dl (32.0-36.0); MEAN CELL VOLUME 83.9 fl (80-96); MEAN PLT VOLUME 8.5 fl (7.5-11.1); NEUTROPHILS 44.5 % (42.8-82.8); PLATELET COUNT 233 K/MM3 (134-434); WHITE BLOOD COUNT 7.5 K/mm3 (4.0-10.0)
[2017-02-13] MEDS ORDERED: ASPIRIN 81 MG CHEWABLE TABLETS PO ONE (22:51)
[2017-02-13] MEDS ORDERED: ASPIRIN 81 MG CHEWABLE TABLETS ONE (22:55)
[2017-02-13 23:12] LABS: ALBUMIN 3.4 g/dl (3.4-5.0); ANION GAP 11 (8-16); BILIRUBIN,TOTAL 0.2 mg/dL (0.2-1.0); CALCIUM 8.7 mg/dL (8.5-10.1); CO2 26 mmol/L (21-32); GLUCOSE,RANDOM 101 mg/dL (74-106); SGOT/AST 7 U/L (15-37); SGPT/ALT 16 U/L (12-78); TOT PROT 6.6 g/dl (6.4-8.2)
[2017-02-13 23:15] LABS: ALK PHOS 42 U/L (45-117); TROPONIN I < 0.02 ng/ml (0.00-0.05)
[2017-02-14 03:05] LABS: TROPONIN I < 0.02 ng/ml (0.00-0.05)
[2017-02-14 04:45] VITALS: BP 97/54; PULSE 62
--- NOTE | 2017-02-14 08:17 | EKG ---
Test Reason : Blood Pressure : / mmHG Vent. Rate : 055 BPM Atrial Rate : 055 BPM P-R Int : 148 ms QRS Dur : 086 ms QT Int : 418 ms P-R-T Axes : 064 024 022 degrees QTc Int : 399 ms SINUS BRADYCARDIA WITH MARKED SINUS ARRHYTHMIA OTHERWISE NORMAL ECG WHEN COMPARED WITH ECG OF 04-OCT-2016 09:29, VENT. RATE HAS DECREASED BY 29 BPM Confirmed by ANNALEE ELLIS, CHANNING ([id number]) on 02/14/2017 8:17:35 AM Referred By: Confirmed By:CHANNING MANTILLA MD
== END 2017-02-14 04:46 | disposition home or self-care (01) ==
LOC: JER 22:04
DX: R07.89 Other chest pain (principal)
CPT/HCPCS: 36415; 71010-TC; 80053; 82550; 82553; 84484; 84703; 85025; 85610; 93005; 93010; 99284-25

== ENCOUNTER 2017-06-18 16:58 | Emergency (ER) | payer OTHER ==
[2017-06-18 17:26] VITALS: BP 146/87; PULSE 78; TEMP 98.4; BMI 38.0
--- NOTE | 2017-06-18 17:53 | PDOC ---
History of Present Illness <Rosa Carlson - Last Filed: 06/18/17 17:53> - General History Source: Patient Exam Limitations: No Limitations - History of Present Illness Initial Comments: 06/18/17 18:06 The patient is a 42 year old female presenting with her daughter, with a significant past medical history of asthma, who presents to the emergency department with pain/weakness/numbness in her right upper and lower extremity, as well as palpitations since yesterday. She notes that she has had these symptoms in the past. She describes her pain as ranging from mild to moderate, with radiation to her neck and throughout the right side of her body. She notes that movement of her right side exacerbates her pain. 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 The patient denies chest pain, shortness of breath, headache and dizziness. Denies fever, chills, nausea, vomit, diarrhea and constipation. Denies dysuria, frequency, urgency and hematuria. LMP: Current Allergies: None Past surgical history: Tubal ligation, cholecystectomy Social history: No alcohol, tobacco or drug use reported <Addy Cha - Last Filed: 06/18/17 17:57> <Kenia Swann - Last Filed: 06/18/17 22:14> - General Chief Complaint: Weakness Stated Complaint: PAIN Time Seen by Provider: 06/18/17 17:53 Past History - Past Medical History Asthma: Yes Cancer: No Cardiac Disorders: No Diabetes: No HTN: No Hypercholesterolemia: Yes (NOT ON MEDS) Seizures: No Thyroid Disease: No - Surgical History Abdominal Surgery: Yes (TUBAL LIGATION) Cholecystectomy: Yes - Reproductive History (#): 4 Para: 3 Therapeutic (s) & number: No Spontaneous : 0 - Immunization History Immunization Up to Date: Yes - Suicide/Smoking/Psychosocial Hx Smoking History: Never smoked Have you smoked in the past 12 months: No Number of Cigarettes Smoked Daily: 0 Information on smoking cessation initiated: No Hx Alcohol Use: No Drug/Substance Use Hx: No Substance Use Type: None Hx Substance Use Treatment: No <Rosa Carlson - Last Filed: 06/18/17 17:53> <Addy Cha - Last Filed: 06/18/17 17:57> <Kenia Swann - Last Filed: 06/18/17 22:14> - Past Medical History Allergies/Adverse Reactions: Allergies Allergy/AdvReac Type Severity Reaction Status Date / Time No Known Allergies Allergy Verified 06/18/17 17:21 Home Medications: Ambulatory Orders Albuterol Sulfate Inhaler - [Ventolin Hfa Inhaler -] 1 - 2 inh PO Q4H PRN Ibuprofen [Motrin -] 600 mg PO TID #30 tablet 06/18/17 Methocarbamol [Robaxin -] 500 mg PO TID #30 tablet 06/18/17 Review of Systems - Review of Systems Able to Perform ROS?: Yes Comments:: 06/18/17 18:06 GENERAL/CONSTITUTIONAL: No fever or chills. HEAD, EYES, EARS, NOSE AND THROAT: No change in vision. No ear pain or discharge. No sore throat.- CARDIOVASCULAR: No chest pain or shortness of breath RESPIRATORY: No cough, wheezing, or hemoptysis. GASTROINTESTINAL: No nausea, vomiting, diarrhea or constipation. GENITOURINARY: No dysuria, frequency, or change in urination. MUSCULOSKELETAL: (+) Right sided neck pain. Right upper and lower extremity pain /numbness/weakness. No back pain. SKIN: No rash NEUROLOGIC: No headache, vertigo, loss of consciousness, or change in strength/ sensation. ENDOCRINE: No increased thirst. No abnormal weight change HEMATOLOGIC/LYMPHATIC: No anemia, easy bleeding, or history of blood clots. ALLERGIC/IMMUNOLOGIC: No hives or skin allergy. <Addy Cha - Last Filed: 06/18/17 17:57> *Physical Exam - Vital Signs Last Vital Signs Temp Pulse Resp BP Pulse Ox 98.4 F 78 14 146/87 98 06/18/17 17:21 06/18/17 17:21 06/18/17 17:21 06/18/17 17:21 06/18/17 17:21 <Rosa Carlson - Last Filed: 06/18/17 17:53> - Vital Signs Last Vital Signs Temp Pulse Resp BP Pulse Ox 98.4 F 78 14 146/87 98 06/18/17 17:21 06/18/17 17:21 06/18/17 17:21 06/18/17 17:21 06/18/17 17:21 - Physical Exam Comments: 06/18/17 18:07 GENERAL: Awake, alert, and fully oriented, in no acute distress HEAD: No signs of trauma, normocephalic, atraumatic EYES: PERRLA, EOMI, sclera anicteric, conjunctiva clear ENT: Auricles normal inspection, hearing grossly normal, nares patent, oropharynx clear without exudates. Moist mucosa NECK: Normal ROM, supple, no lymphadenopathy, JVD, or masses LUNGS: No distress, speaks full sentences, clear to auscultation bilaterally HEART: Regular rate and rhythm, normal S1 and S2, no murmurs, rubs or gallops, peripheral pulses normal and equal bilaterally. ABDOMEN: Soft, nontender, normoactive bowel sounds. No guarding, no rebound. No masses EXTREMITIES : Normal inspection, Normal range of motion, no edema. No clubbing or cyanosis. NEUROLOGICAL: Cranial nerves II through XII grossly intact. Normal speech, normal gait, no focal sensorimotor deficits SKIN: Warm, Dry, normal turgor, no rashes or lesions noted. <Addy Cha - Last Filed: 06/18/17 17:57> - Vital Signs Last Vital Signs Temp Pulse Resp BP Pulse Ox 98.4 F 78 14 146/87 98 06/18/17 17:21 06/18/17 17:21 06/18/17 17:21 06/18/17 17:21 06/18/17 18:10 <Kenia Swann - Last Filed: 06/18/17 22:14> ED Treatment Course - LABORATORY CBC & Chemistry Diagram: 06/18/17 16:25 06/18/17 16:25 - ADDITIONAL ORDERS Additional order review: Laboratory Results 06/18/17 06/18/17 06/18/17 18:30 18:30 16:25 Sodium 140 Potassium 4.4 Chloride 104 Carbon Dioxide 29 Anion Gap 7 L BUN 13 Creatinine 1.0 Creat Clearance w eGFR > 60 Random Glucose 85 Calcium 8.4 L Total Bilirubin 0.2 AST 7 L ALT 19 Alkaline Phosphatase 46 Total Protein 6.8 Albumin 3.3 L Urine Color Ltyellow Urine Appearance Slcloudy Urine pH 6.0 Urine Protein Negative Urine Glucose (UA) Negative Urine Ketones Negative Urine Blood 3+ H Urine Nitrite Negative Urine Bilirubin Negative Urine Urobilinogen 2.0 H Urine RBC 1090 Urine WBC 10 Ur Epithelial Cells Rare Urine HCG, Qual Negative 06/18/17 16:25 RBC 4.70 MCV 83.8 MCHC 34.1 RDW 14.0 MPV 8.6 Neutrophils % 49.0 Lymphocytes % 38.5 Monocytes % 8.4 Eosinophils % 3.6 Basophils % 0.5 - Medications Given in the ED: ED Medications Discontinued Medications Generic Name Dose Route Start Last Admin Trade Name Gloria PRN Reason Stop Dose Admin Ketorolac Tromethamine 30 mg 06/18/17 18:19 06/18/17 18:57 Toradol Injection - IVPUSH 06/18/17 18:20 30 mg ONCE ONE Administration <Kenia Swann - Last Filed: 06/18/17 22:14> Medical Decision Making - Medical Decision Making 06/18/17 20:57 Patient Name: JEREL QUISPE THIS IS A PRELIMINARY REPORT FROM IMAGING DIRECTOR OF MATERIALS DATE OF SERVICE: 2017-06-18 19:11:58 IMAGES: 150 EXAM: CT HEAD HISTORY:Right sided numbness. COMPARISON: None. FINDINGS:This is a preliminary report. Axial CT scan of the brain was performed utilizing 5.0 mm thick slices from the base of the skull up to the vertex of the skull. No intravenous contrast was administered. There is no evidence of midline shift or mass effect. No gross mass is identified. There is no evidence of hemorrhage or contusion. The ventricular system is unremarkable. No abnormal focus of low attenuation is identified within the brain parenchyma. No significant surrounding soft tissue abnormality is identified. The calvarium is intact. IMPRESSION: Unremarkable noncontrast CT scan of the brain. THIS DOCUMENT HAS BEEN ELECTRONICALLY SIGNED Pt is feeling better; labs are normal. SHe will be discharged home. She has sciatica that is acting up and likely a radiculopathy in her c spine. She understands that if the pain gets worse, she should come back for cervical spine CT; or follow outpatient for MRI. <Kenia Swann - Last Filed: 06/18/17 22:14> *DC/Admit/Observation/Transfer <Rosa Carlson - Last Filed: 06/18/17 17:53> - Attestations Scribe Attestion: 06/18/17 18:07 Documentation prepared by Addy Cha, acting as medical records receptionist for Rosa Carlson MD <Addy Cha - Last Filed: 06/18/17 17:57> - Discharge Dispostion Admit: No <Kenia Swann - Last Filed: 06/18/17 22:14> Diagnosis at time of Disposition: Sciatica, Radiculopathy of arm - Discharge Dispostion Disposition: HOME Condition at time of disposition: Stable - Prescriptions Prescriptions: Ibuprofen [Motrin -] 600 mg PO TID #30 tablet Methocarbamol [Robaxin -] 500 mg PO TID #30 tablet - Referrals Referrals: Josefa Rothman [Primary Care Provider] - - Patient Instructions Printed Discharge Instructions: DI for Sciatica, DI for Cervical Radiculopathy , DI for Lumbar Radiculopathy
[2017-06-18] MEDS ORDERED: KETOROLAC TROMETHAMINE 30 MG/1 ML VIAL IVPUSH ONE (18:19)
[2017-06-18 18:35] LABS: BASOPHIL 0.5 % (0-2.0); EOSINOPHIL 3.6 % (0-4.5); MCH 28.6 pg (25.7-33.7); MCHC 34.1 g/dl (32.0-36.0); MEAN CELL VOLUME 83.8 fl (80-96); MEAN PLT VOLUME 8.6 fl (7.5-11.1); PLATELET COUNT 244 K/MM3 (134-434); WHITE BLOOD COUNT 8.2 K/mm3 (4.0-10.0)
[2017-06-18 18:39] LABS: URINE APPEARANCE SLCLOUDY; URINE BILIRUBIN NEGATIVE (NEGATIVE); URINE BLOOD 3+ (NEGATIVE); URINE COLOR LTYELLOW; URINE GLUCOSE (UA) NEGATIVE (NEGATIVE); URINE KETONE NEGATIVE (NEGATIVE); URINE LEUK ESTERASE NEGATIVE (NEGATIVE); URINE NITRITE NEGATIVE (NEGATIVE); URINE PROTEIN NEGATIVE (NEGATIVE)
[2017-06-18] MEDS ORDERED: KETOROLAC TROMETHAMINE 30 MG/1 ML VIAL ONE (18:43)
[2017-06-18 18:46] LABS: URINE RBC 1090 /hpf (0-3); URINE WBC 10 /hpf (3-5)
[2017-06-18 19:00] LABS: ALBUMIN 3.3 g/dl (3.4-5.0); ANION GAP 7 (8-16); BILIRUBIN,TOTAL 0.2 mg/dL (0.2-1.0); CALCIUM 8.4 mg/dL (8.5-10.1); CO2 29 mmol/L (21-32); GLUCOSE,RANDOM 85 mg/dL (74-106); SGOT/AST 7 U/L (15-37); SGPT/ALT 19 U/L (12-78); TOT PROT 6.8 g/dl (6.4-8.2)
[2017-06-18 19:01] LABS: ALK PHOS 46 U/L (45-117)
[2017-06-18] MEDS ORDERED: METHOCARBAMOL 500 MG TABLET PO ONE (20:59)
[2017-06-18] MEDS ORDERED: METHOCARBAMOL 500 MG TABLET ONE (21:02)
== END 2017-06-18 21:16 | disposition home or self-care (01) ==
LOC: JER 16:58
PROC: 3E0333Z Introduction of Anti-inflammatory into Peripheral Vein, Percutaneous Approach (ICD-10-PCS; principal; 2017-06-18)
DX: M54.12 Radiculopathy, cervical region (principal); M54.41 Lumbago with sciatica, right side; J45.909 Unspecified asthma, uncomplicated; E78.00 Pure hypercholesterolemia, unspecified; R00.2 Palpitations
CPT/HCPCS: 36415; 70450-TC; 80053; 81003; 81015; 84703; 85025; 96374; 99284-25

== ENCOUNTER 2017-11-07 14:46 | Emergency (ER) | payer OTHER ==
--- NOTE | 2017-11-07 15:40 | PDOC ---
Rapid Medical Evaluation Medical Evaluation: Allergies Allergy/AdvReac Type Severity Reaction Status Date / Time No Known Allergies Allergy Verified 06/18/17 17:21 11/07/17 15:37 I have performed a brief in-person evaluation of this patient. The patient presents with a chief complaint of: sore throat, chills, body aches since yesterday Pertinent physical exam findings: exudate to L tonsil I have ordered the following: strep The patient will proceed to the ED for further evaluation. Discharge Disposition - Diagnosis Sore throat - Referrals - Patient Instructions - Post Discharge Activity
[2017-11-07 15:45] VITALS: BP 132/81; PULSE 93; TEMP 98.7; BMI 47.5
--- NOTE | 2017-11-07 16:28 | PDOC ---
History of Present Illness - General Chief Complaint: Sore Throat Stated Complaint: BODYACHES, SORE THROAT Time Seen by Provider: 11/07/17 15:40 History Source: Patient Exam Limitations: No Limitations - History of Present Illness Initial Comments: CHIEF COMPLAINT: 42 y/o afebrile female c/o sore throat, chills, body aches since yesterday. HISTORY OF PRESENT ILLNESS: The patient does not know if she had a fever but has been hot, sweating and then cold since yesterday. She states it hurts to swallow. She denies all other symptoms. Past History - Past Medical History Allergies/Adverse Reactions: Allergies Allergy/AdvReac Type Severity Reaction Status Date / Time No Known Allergies Allergy Verified 11/07/17 16:14 Home Medications: Ambulatory Orders Penicillin V Potassium [Pen Vee K -] 500 mg PO TID #30 tablet 11/07/17 Asthma: Yes Cancer: No Cardiac Disorders: No COPD: No Diabetes: No HTN: No Hypercholesterolemia: Yes (NOT ON MEDS) Seizures: No Thyroid Disease: No - Surgical History Abdominal Surgery: Yes (TUBAL LIGATION) Cholecystectomy: Yes - Reproductive History (#): 4 Para: 3 Therapeutic (s) & number: No Spontaneous : 0 - Immunization History Immunization Up to Date: Yes - Suicide/Smoking/Psychosocial Hx Smoking History: Never smoked Have you smoked in the past 12 months: No Number of Cigarettes Smoked Daily: 0 Information on smoking cessation initiated: No Hx Alcohol Use: No Drug/Substance Use Hx: No Substance Use Type: None Hx Substance Use Treatment: No Review of Systems - Review of Systems Able to Perform ROS?: Yes Constitutional: Yes: Chills, Fever (tactile) HEENTM: Yes: Throat Pain, Difficulty Swallowing. No: Ear Pain, Ear Discharge, Nose Pain, Nose Congestion Respiratory: No: Cough, Wheezing Cardiac (ROS): No: Chest Pain ABD/GI: No: Symptoms Reported *Physical Exam - Vital Signs Last Vital Signs Temp Pulse Resp BP Pulse Ox 98.7 F 93 H 20 132/81 98 11/07/17 15:40 11/07/17 15:40 11/07/17 15:40 11/07/17 15:40 11/07/17 15:40 - Physical Exam Comments: MOrbily obese ambulatory female in NAD or obvious discomfort. General Appearance: Yes: Nourished, Appropriately Dressed, Obese. No: Apparent Distress HEENT: positive: EOMI, KIKA, Normal Voice, Tonsillar Exudate, Tonsillar Erythema , Other (no trismus. No soft/hard palate deformities. Uvula midline). negative: Nasal Congestion, Rhinorrhea Neck: positive: Lymphadenopathy (R), Lymphadenopathy (L) Medical Decision Making - Medical Decision Making A/P: 42 y/o female with tactile fever at home, sore throat with 2+ tonsilar edema with exudate noted on left tonsil. Will treat empirically for strep. Strep swab was sent from triage and not resulted yet. Suggested patient take motrin at home if needed for pain/fever, drink plenty of fluids, gargle with warm salt water, take abx as prescribed and return to the ER with any worsening or concerning symptoms. The patient verbalizes understanding of all instructions, has no further questions and is awaiting discharge. *DC/Admit/Observation/Transfer Diagnosis at time of Disposition: Sore throat, Strep throat - Discharge Dispostion Disposition: HOME Condition at time of disposition: Good - Prescriptions Prescriptions: Penicillin V Potassium [Pen Vee K -] 500 mg PO TID #30 tablet - Referrals Referrals: Josefa Rothman [Primary Care Provider] - - Patient Instructions Printed Discharge Instructions: DI for Strep Throat Additional Instructions: Discharge Instructions: -You have strep throat -A prescription for antibiotics has been sent to your pharmacy; please take as prescribed -Gargle with warm salt water -Take tylenol or motrin for fever/pain if needed -Throw away your toothbrush after 3 days of antibiotics -Return to the ER with any worsening or concerning symptoms - Post Discharge Activity Forms/Work/School Notes: Back to Work
== END 2017-11-07 16:32 | disposition home or self-care (01) ==
LOC: JERFT 14:46
DX: J02.0 Streptococcal pharyngitis (principal); B95.5 Unspecified streptococcus as the cause of diseases classified elsewhere
CPT/HCPCS: 87070; 87430; 99281-25

== ENCOUNTER 2017-12-04 14:54 | Emergency (ER) | payer OTHER ==
[2017-12-04 15:03] VITALS: BP 148/91; PULSE 92; TEMP 98; BMI 45.9
[2017-12-04] MEDS ORDERED: METOCLOPRAMIDE HCL INJECTION 10 MG/2 ML VIAL IVPUSH ONE (16:05)
[2017-12-04] MEDS ORDERED: KETOROLAC TROMETHAMINE 30 MG/1 ML VIAL IVPUSH ONE (16:05)
--- NOTE | 2017-12-04 16:07 | PDOC ---
History of Present Illness - General Chief Complaint: Head/Neck problem Stated Complaint: BACK PAIN Time Seen by Provider: 12/04/17 15:28 History Source: Patient Exam Limitations: No Limitations - History of Present Illness Initial Comments: 12/04/17 17:02 this is a 42-year-old female with past medical history of cerebral aneurysm asthma and SRINI presents emergency Department with 3 days of right frontal headache, right lateral neck pain radiating down her spine to her right lower back and bilateral legs. Her pain also radiates to her right shoulder. Patient states her headache starts in the right frontal area and radiates across to the left frontal area to the postauricular region of her left head. Patient reports intermittent photophobia and denies phonophobia. Patient has been experiencing chills but denies any fevers. Patient has been taking [id number] Motrin with minimal relief of her pain. Patient also reports heaviness in bilateral lower extremities with the right side being worse than the left. Patient states symptoms are different from when she was diagnosed with her cerebral aneurysm. At that time she was only experiencing headaches. Patient is unsure of the location of her previous aneurysm. She denies blurry vision, numbness, tingling , chest pain, shortness of breath, abdominal pain, nausea, vomiting, diarrhea, saddle anesthesia, incontinence of bladder or bowel. Past History - Past Medical History Allergies/Adverse Reactions: Allergies Allergy/AdvReac Type Severity Reaction Status Date / Time No Known Allergies Allergy Verified 12/04/17 14:59 Home Medications: Ambulatory Orders NK [No Known Home Medication] 12/04/17 Asthma: Yes Cancer: No Cardiac Disorders: No COPD: No Diabetes: No HTN: No Hypercholesterolemia: Yes (NOT ON MEDS) Seizures: No Thyroid Disease: No - Surgical History Abdominal Surgery: Yes (TUBAL LIGATION) Cholecystectomy: Yes - Reproductive History (#): 4 Para: 3 Therapeutic (s) & number: No Spontaneous : 0 - Immunization History Immunization Up to Date: Yes - Suicide/Smoking/Psychosocial Hx Smoking History: Never smoked Have you smoked in the past 12 months: No Number of Cigarettes Smoked Daily: 0 Hx Alcohol Use: No Drug/Substance Use Hx: No Substance Use Type: None Hx Substance Use Treatment: No Review of Systems - Review of Systems Able to Perform ROS?: Yes Is the patient limited Greek proficient: No Constitutional: Yes: See HPI HEENTM: No: Symptoms Reported Respiratory: No: Symptoms reported Cardiac (ROS): No: Symptoms Reported ABD/GI: No: Symptoms Reported : No: Symptoms Reported Musculoskeletal: Yes: See HPI Integumentary: No: Symptoms Reported Neurological: Yes: See HPI Endocrine: No: Symptoms Reported Hematologic/Lymphatic: No: Symptoms Reported *Physical Exam - Vital Signs Last Vital Signs Temp Pulse Resp BP Pulse Ox 98 F 92 H 19 148/91 100 12/04/17 14:59 12/04/17 14:59 12/04/17 14:59 12/04/17 14:59 12/04/17 14:59 - Physical Exam General Appearance: Yes: Appropriately Dressed. No: Apparent Distress HEENT: positive: Normal ENT Inspection Neck: positive: Trachea midline, Supple, Tender lateral (right) Respiratory/Chest: positive: Lungs Clear, Normal Breath Sounds. negative: Respiratory Distress, Accessory Muscle Use Cardiovascular: positive: Regular Rhythm, Regular Rate. negative: Murmur Gastrointestinal/Abdominal: positive: Normal Bowel Sounds, Soft. negative: Tender Musculoskeletal: positive: Normal Inspection. 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 negative: Facial Droop, Numbness Medical Decision Making - Medical Decision Making 12/04/17 17:09 A/P: 42-year-old woman past medical history of cerebral aneurysm presents with right frontal headache radiating to her left postauricular region. Patient also with pain to right lateral neck shooting into her right upper extremity down her spine into her lower back and down bilateral lower extremities with right side being worse than the left. PERRLA- brisk at 4 mm bilaterally Cranial nerves II through XII grossly intact. Finger-nose exam within normal limits. 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 Full sensation noted to both pain and 2 point discrimination testing. Pain in her right neck worsens with articulation of the right shoulder. No foot drop noted. Migraine versus ICH versus brain mass versus meningitis UPT Stat CT of the head Reglan 10 mg IV Toradol 30 mg IV Reassess 12/04/17 18:[address] as read by Dr. Meadows: No intraoral extra-axial hemorrhage or collection. No mass lesion or midline shift. Serena also normal in size in her midline position. Normal alves-white matter differentiation. The calvarium are intact. The visualized paranasal sinuses and mastoid air cells are clear. Patient states complete relief from the headache after receiving Toradol and Reglan IV. Right lateral neck and right shoulder pain likely radiculopathy given worsening symptoms with articulation of the shoulder. I will refer patient to her primary doctor for continued evaluation and additional outpatient imaging. I discussed the physical exam findings, ancillary test results and final diagnoses with the patient. I answered all of the patient's questions. The patient was satisfied with the care received and felt comfortable with the discharge plan and treatment plan. The patient will call her doctor within 72 hours to arrange follow-up and will return to the Emergency Department with any new, persistent or worsening symptoms. *DC/Admit/Observation/Transfer Diagnosis at time of Disposition: Radiculopathy affecting upper extremity Migraine Qualifiers: Migraine type: unspecified Status migrainosus presence: without status migrainosus Intractability: not intractable Qualified Code(s): G43.909 - Migraine, unspecified, not intractable, without status migrainosus - Discharge Dispostion Disposition: HOME Condition at time of disposition: Stable Admit: No - Referrals Referrals: Josefa Rothman [Primary Care Provider] - Pepito Bundy MD [Staff Physician] - - Patient Instructions Printed Discharge Instructions: DI for Migraine, DI for Cervical Radiculopathy Additional Instructions: Make an appointment with her primary doctor for continued evaluation and potential physical therapy referral. You have been given a number for neurologist. Please call to make an appointment for evaluation of your migraines. Return to emergency department for worsening pain, headache, blurry vision, numbness or tingling getting worse, or any other concerns. - Post Discharge Activity
[2017-12-04] MEDS ORDERED: KETOROLAC TROMETHAMINE 30 MG/1 ML VIAL ONE (17:13)
[2017-12-04] MEDS ORDERED: METOCLOPRAMIDE HCL INJECTION 10 MG/2 ML VIAL ONE (17:13)
== END 2017-12-04 18:40 | disposition home or self-care (01) ==
LOC: JERFT 14:54
PROC: 3E033GC Introduction of Other Therapeutic Substance into Peripheral Vein, Percutaneous Approach (ICD-10-PCS; principal; 2017-12-04)
PROC: 3E0333Z Introduction of Anti-inflammatory into Peripheral Vein, Percutaneous Approach (ICD-10-PCS; 2017-12-04)
DX: G43.909 Migraine, unspecified, not intractable, without status migrainosus (principal); M54.12 Radiculopathy, cervical region; M54.5 Low back pain; M79.604 Pain in right leg; M79.605 Pain in left leg
CPT/HCPCS: 70450-TC; 84703; 96374; 96375; 99281-25